=== PATIENT | male | born 1935 | race Caucasian/White ===

== ENCOUNTER 2019-12-11 | Emergency (ER) | payer OTHER ==
[2019-12-11] MEDS ORDERED: LISINOPRIL20 MG PO (19:19)
[2019-12-11] MEDS ORDERED: ASPIRIN 81 LOW81 MG (19:20)
[2019-12-11] MEDS ORDERED: FINASTERIDE5 MG PO (19:20)
[2019-12-11] MEDS ORDERED: NAPROXEN500 MG PO (21:19)
[2019-12-11] MEDS ORDERED: FLEXERIL PO (21:19)
== END 2019-12-11 21:43 | disposition home or self-care (01) | DRG 605 ==
DX: S00.01XA Abrasion of scalp, initial encounter (principal); I10 Essential (primary) hypertension; V44.5XXA Car driver injured in collision with heavy transport vehicle or bus in traffic accident, initial encounter